=== PATIENT | male | born 1995 | race American Indian/Alaskan Native ===

== ENCOUNTER 2018-01-29 03:37 | Emergency (ER) | payer MEDICARE ==
[2018-01-29 05:11] VITALS: BP 116/67
[2018-01-29 05:38] LABS: Basophils # (Auto) 0.1 K/mm3 (0.0-0.1); Basophils % (Auto) 0.8 % (0.0-1.8); Eosinophils # (Auto) 0.1 K/mm3 (0.0-0.4); Eosinophils % (Auto) 0.7 % (0.0-4.3); Hematocrit 46.4 % (35.5-45.6); Hemoglobin 15.4 gm/dl (11.8-15.2); Lymphocytes # (Auto) 2.7 K/mm3 (1.2-5.4); Lymphocytes % (Auto) 22.7 % (13.4-35.0); Mean Corpuscular HGB Conc 33 % (32-34); Mean Corpuscular Hemoglobin 28 pg (28-32); Mean Corpuscular Volume 85 fl (84-94); Monocytes # (Auto) 0.8 K/mm3 (0.0-0.8); Platelet Count 306 K/mm3 (140-440); Red Blood Count 5.43 M/mm3 (3.65-5.03)
[2018-01-29 05:56] LABS: BUN/Creatinine Ratio 10; Blood Urea Nitrogen 10 mg/dL (9-20); Calcium 9.4 mg/dL (8.4-10.2); Hemolysis Index 11
[2018-01-29 07:02] LABS: Bilirubin,Urine NEG (Negative); Blood,Urine NEG (Negative); Color,Urine Yellow (Yellow); Mucus,Urine FEW /HPF; Protein,Urine <15 mg/dL mg/dL (Negative); RBC,Urine < 1.0 /HPF (0.0-6.0); WBC,Urine < 1.0 /HPF (0.0-6.0)
[2018-01-29 07:08] LABS: Amphetamine Screen,Urine PRESUMPTIVE NEGATIVE; Benzodiazepines Screen,Urine PRESUMPTIVE NEGATIVE; Cannabinoid Screen,Urine PRESUMPTIVE NEGATIVE; Cocaine Screen,Urine PRESUMPTIVE NEGATIVE; Methadone Screen,Urine PRESUMPTIVE NEGATIVE; Opiate Screen,Urine PRESUMPTIVE NEGATIVE
[2018-01-29] MEDS ORDERED: GEODON IM ONE (08:39)
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
[2018-01-29] MEDS ORDERED: BENADRYL ONE (09:00)
[2018-01-29] MEDS ORDERED: WATER FOR INJ (PF) IM ONE (09:00)
[2018-01-29] MEDS ORDERED: HALDOL ONE (09:01)
[2018-01-29] MEDS ORDERED: ATIVAN ONE (09:01)
[2018-01-29] MEDS ORDERED: ATIVAN IM ONE (09:14)
[2018-01-29] MEDS ORDERED: BENADRYL IM ONE (09:14)
[2018-01-29] MEDS ORDERED: HALDOL IM ONE (09:14)
== END 2018-01-29 15:19 | disposition other institution (70) ==
LOC: ED 03:37
DX: F20.9 Schizophrenia, unspecified (principal); F31.9 Bipolar disorder, unspecified; Z79.899 Other long term (current) drug therapy
CPT/HCPCS: 36415; 80048; 80307; 81001; 85025; 96372; 99285; G0480; J1200; J1630; J2060; 80320